=== PATIENT | male | born 2000 | race Two or more races ===

== ENCOUNTER 2024-03-08 11:21 | Emergency (ER) | payer MEDICAID ==
[~2024-03-08] VITALS: Ht 170.2 cm; Wt 79.5 kg
[2024-03-08 11:28] VITALS: TEMP 97.6
[2024-03-08 11:37] LABS: COVID AG,FIA SOURCE NASAL SWAB
[2024-03-08 12:19] LABS: SARS-COV2 (COVID) ANTIGEN,FIA Negative (Negative)
[2024-03-08 12:20] LABS: INFLUENZA TYPE B NEGATIVE FOR TYPE B (NEGATIVE)
[2024-03-08] MEDS: ACETAMINOPHEN 500 MG TABLET PO ONE (12:27)
[2024-03-08] MEDS: ONDANSETRON 4 MG TABLET PO ONE (12:27)
[2024-03-08] MEDS: KETOROLAC TROMETHAMINE 30 MG/ML VIAL IM ONE (12:28)
[2024-03-08 12:34] LABS: INFLUENZA TYPE A POSITIVE FOR TYPE A (NEGATIVE)
[2024-03-08] MEDS ORDERED: ONDA-104 PO (12:52)
[2024-03-08 13:00] VITALS: BP 135/84; PULSE 90; RESP 18; O2SAT 99
== END 2024-03-08 13:13 | disposition home or self-care (01) ==
LOC: EMS 11:39
DX: J10.1 Influenza due to other identified influenza virus with other respiratory manifestations (principal); Z20.822 Contact with and (suspected) exposure to COVID-19
CPT/HCPCS: 99283; 87426; 87804; 96372; J1885; Q0162